=== PATIENT | female | born 1965 | race Caucasian/White ===

== ENCOUNTER → 2019-08-24 | Outpatient (CLI) | payer OTHER ==
[2019-08-24 10:31] LABS: HCT 45.1 % (34.0-46.0); HGB 14.5 gm/dL (11.4-16.0); MCHC 32.1 g/dL (31.0-37.0); MCV 87.1 fL (80.0-100.0); Mean Platelet Volume 7.3; Platelet Count 323 k/uL (150-450); RBC 5.18 m/uL (3.80-5.40); WBC 10.4 k/uL (3.8-10.6)
[2019-08-24 11:15] LABS: Amorphous Sediment,Urine Rare /hpf; Appearance,Urine Cloudy (Clear); Bacteria,Urine Occasional /hpf; Bilirubin,Urine Negative (Negative); Blood,Urine Negative (Negative); Color,Urine Yellow; Glucose,Urine (UA) Negative (Negative); Hyphae Yeast, Urine Rare /hpf; Ketones,Urine Negative (Negative); Leukocyte Esterase,Urine Moderate (Negative); Mucus,Urine Many /hpf; Nitrite,Urine Negative (Negative); Protein,Urine Trace (Negative); RBC,Urine 4 /hpf (0-5); Specific Gravity,Urine 1.026 (1.001-1.035); Squamous Epithelial Cell,Urine 17 /hpf (0-4); Urobilinogen,Urine <2.0 mg/dL (<2.0); WBC,Urine 8 /hpf (0-5)
[2019-08-24 16:10] LABS: African American GFR (CKD) 82.8 (60.0-200.0); Albumin 4.4 g/dL (3.80-4.90); Albumin/Globulin Ratio 1.76 (1.60-3.17); BUN/Creat Ratio 18.89 Ratio (12.00-20.00); Calcium 9.6 mg/dL (8.7-10.3); Globulin 2.5 g/dL (1.6-3.3); Non-African American GFR(CKD) 71.5 (60.0-200.0); Phosphorus 4.2 mg/dL (2.4-5.1); Potassium 4.4 mmol/L (3.5-5.5); Total Bilirubin 0.5 mg/dL (0.3-1.2); Total Protein 6.9 g/dL (6.2-8.2)
== END | disposition home or self-care (01) ==
LOC: LABWHC1 09:11
PROVIDERS: ATTEND Orthopaedic Surgery
DX: M25.572 Pain in left ankle and joints of left foot (principal); S82.65XD Nondisplaced fracture of lateral malleolus of left fibula, subsequent encounter for closed fracture with routine healing
CPT/HCPCS: 36415; 80053; 81001; 82306; 82310; 82652; 83970; 84100; 85027

== ENCOUNTER → 2022-06-12 | Outpatient (CLI) | payer OTHER ==
--- NOTE | 2022-06-13 11:06 | MM ---
Reason for Exam: Screening (asymptomatic). Last screening mammogram was performed 12 month(s) ago. Patient History: Menarche at age 11. First Full-Term at age 18. Postmenopausal. Risk Values: Maribell 5 year model risk: 1.2%. Tissue Density: There are scattered fibroglandular densities. Findings: Analyzed By CAD. Pattern appears symmetrical and stable. No suspicious groups of microcalcifications, spiculated or lobular masses, architectural distortion or other secondary signs of malignancy are mammographically apparent. Overall Assessment: Benign, BI-RAD 2 Management: Screening Mammogram of both breasts in 1 year. A negative mammogram report should not preclude additional follow up of suspicious palpable abnormalities. Patient should continue monthly self breast exam. A clinical breast exam by your physician is recommended on an annual basis and results should be correlated with mammographic findings. Electronically signed and approved by: Nitin Calhoun D.O. Radiologis
== END | disposition home or self-care (01) ==
LOC: RADMAMWWP 16:07
PROVIDERS: ATTEND Internal Medicine Geriatric Medicine
DX: Z12.31 Encounter for screening mammogram for malignant neoplasm of breast (principal); Z78.0 Asymptomatic menopausal state
CPT/HCPCS: 77063; 77067

== ENCOUNTER → 2023-08-07 | Outpatient (CLI) | payer OTHER ==
[2023-08-07 14:28] LABS: Basophils # (A) 0.04 X 10*3/uL (0.00-0.10); Basophils % (A) 0.5 %; Eosinophils # (A) 0.27 X 10*3/uL (0.04-0.35); Eosinophils % (A) 3.1 %; HCT 44.4 % (37.2-46.3); HGB 14.3 g/dL (12.0-15.0); Lymphocytes # (A) 2.23 X 10*3/uL (0.90-5.00); Lymphocytes % (A) 25.7 %; MCH 28.7 pg (27.0-32.0); MCHC 32.2 g/dL (32.0-37.0); Mean Platelet Volume 10.9 FL (9.5-12.2); Monocytes # (A) 0.65 X 10*3/uL (0.20-1.00); Monocytes % (A) 7.5 %; NRBC Per 100 WBC 0 X 10*3/uL (0.00-0.01); Neutrophils # (A) 5.46 X 10*3/uL (1.80-7.70); Neutrophils % (A) 62.9 %; Platelet Count 292 X 10*3/uL (140-440); RBC 4.99 X 10*6/uL (4.10-5.20); WBC 8.68 X 10*3/uL (4.50-10.00)
[2023-08-07 15:13] LABS: Albumin 4.2 g/dL (3.8-4.9); BUN/Creat Ratio 19.62 Ratio (12.00-20.00); Blood Urea Nitrogen 15.7 mg/dL (9.0-27.0); Calcium 9.8 mg/dL (8.7-10.3); Carbon Dioxide 26.2 mmol/L (21.6-31.8); Chloride 105 mmol/L (96-109); Chol/HDL Ratio 4.25 Ratio; Glucose 135 mg/dL (70-110); LDL Cholesterol,Calculated 84.4 mg/dL (0.0-131.0); Potassium 4.4 mmol/L (3.5-5.5); Sodium 142 mmol/L (135-145); Total Protein 6.8 g/dL (6.2-8.2)
[2023-08-07 15:14] LABS: ALT 18 U/L (8-44); AST 22 U/L (13-35); Albumin/Globulin Ratio 1.62 Ratio (1.60-3.17); Alkaline Phosphatase 107 U/L (41-126); Globulin 2.6 g/dL (1.6-3.3); T4, Free (Free Thyroxine) 1.46 ng/dL (0.80-1.80); Total Bilirubin 0.4 mg/dL (0.3-1.2)
--- NOTE | 2023-08-12 19:57 | MM ---
Reason for Exam: Screening (asymptomatic). Last mammogram was performed 1 year(s) and 2 month(s) ago. Patient History: Menarche at age 11. First Full-Term at age 18. Postmenopausal. Patient has history of breast feeding. Risk Values: Maribell 5 year model risk: 1.3%. NCI Lifetime model risk: 6.6%. Prior Study Comparison: 06/04/2019 Bilateral MG screening mammo w CAD - 2, Unknown. 06/06/2020 Bilateral MG screening mammo w CAD - 2, [facility]. 06/08/2021 Bilateral MG 3D screening mammo w/cad, [facility]. 06/12/2022 Bilateral MG 3D screening mammo w/cad, [facility]. Tissue Density: There are scattered areas of fibroglandular density. Findings: Analyzed By CAD. There is no suspicious group of microcalcifications or new suspicious mass in either breast. Overall Assessment: Negative, BI-RAD 1 Management: Screening Mammogram of both breasts in 1 year. . Patient should continue monthly self-breast exams. A clinical breast exam by your physician is recommended on an annual basis. This exam should not preclude additional follow-up of suspicious palpable abnormalities. Note on Maribell scores and lifetime risk: 1. A Maribell score greater than 3% is considered moderate risk. If this is the case, consider specialist referral to assess eligibility for a risk reducing agent. 2. If overall lifetime risk for the development of breast cancer is 20% or higher, the patient may qualify for future screening with alternating mammogram and breast MRI. Electronically signed and approved by: Rosetta Fall M.D. Radiologist
== END | disposition home or self-care (01) ==
LOC: RADMAMWWP 07:33
PROVIDERS: ATTEND Internal Medicine Geriatric Medicine
DX: Z00.00 Encounter for general adult medical examination without abnormal findings (principal); Z12.31 Encounter for screening mammogram for malignant neoplasm of breast; E78.2 Mixed hyperlipidemia; E03.9 Hypothyroidism, unspecified; R73.9 Hyperglycemia, unspecified; Z78.0 Asymptomatic menopausal state
CPT/HCPCS: 36415; 77063; 77067; 80053; 80061; 82043; 82570; 83036; 84439; 84443; 85025

== ENCOUNTER → 2023-12-11 | Outpatient (CLI) | payer OTHER ==
[2023-12-11 15:52] LABS: ALT 16 U/L (8-44); AST 19 U/L (13-35); Alkaline Phosphatase 104 U/L (41-126); BUN/Creat Ratio 20.29 Ratio (12.00-20.00); Blood Urea Nitrogen 14.2 mg/dL (9.0-27.0); Calcium 9.6 mg/dL (8.7-10.3); Carbon Dioxide 27.9 mmol/L (21.6-31.8); Chloride 104 mmol/L (96-109); Chol/HDL Ratio 3.73 Ratio; Globulin 2.5 g/dL (1.6-3.3); Glucose 120 mg/dL (70-110); LDL Cholesterol,Calculated 66.4 mg/dL (0.0-131.0); Potassium 4.4 mmol/L (3.5-5.5); Sodium 143 mmol/L (135-145); T4, Free (Free Thyroxine) 1.33 ng/dL (0.80-1.80); Total Bilirubin 0.4 mg/dL (0.3-1.2); Total Protein 6.5 g/dL (6.2-8.2)
[2023-12-11 21:18] LABS: Microalbumin Creatinine Ratio <7 mg/g Cr (0-30)
== END | disposition home or self-care (01) ==
LOC: LABWHC1 07:34
PROVIDERS: ATTEND Internal Medicine Geriatric Medicine
DX: E78.2 Mixed hyperlipidemia (principal); E11.65 Type 2 diabetes mellitus with hyperglycemia; E03.9 Hypothyroidism, unspecified
CPT/HCPCS: 36415; 80053; 80061; 82043; 82570; 83036; 84439; 84443